=== PATIENT | female | born 1950 | race Caucasian/White ===

== ENCOUNTER 2016-03-10 16:35 | Emergency (ER) ==
--- NOTE | 2016-03-10 18:01 | PROVIDER DOCUMENTATION ---
HPI-General Adult - General Chief Complaint: Constipation Stated Complaint: BOWEL IMPACTION Time Seen by Provider: 03/10/16 17:46 Source: patient Allergies/Adverse Reactions: Patient Allergies Allergy/AdvReac Type Severity Reaction Status Date / Time No Known Allergies Allergy Verified 03/10/16 17:07 Home Medications: Cyclobenzaprine HCl [Flexeril] 20 mg PO HS 01/01/13 Duloxetine [Cymbalta] 20 mg PO DAILY 01/01/13 Ibandronate [Boniva] 150 mg PO Q30D 01/01/13 Ciprofloxacin HCl [Cipro] 500 mg PO BID MDD 10 03/10/16 Docusate Sodium [Colace] 100 mg PO DAILY 03/10/16 Estradiol 0.5 mg PO DAILY 03/10/16 Linaclotide [Linzess] 290 mcg PO DAILY 03/10/16 - History of Present Illness -Gen Adult Nature of Presenting Problems: 65 yo female presents to the emergency room with a chief complaint of constipation X 2 days. Reports has tried several OTC enemas w/o relief. Patient reports she can not remember her last BM. Gives Hx of constipation. Patient reports she is currently taking Cipro for a UTI. Denies fever, chills, N/V/D, abdominal pain, dysuria or urinary frequency. Severity: reports: moderate Onset/Duration: reports: 2 days ago Similar Symptoms Previously?: Yes Recently seen or treated by another doctor?: Yes Review of Systems - Adult - REVIEW OF SYSTEMS - ADULT ROS:: unobtainable per condition Constitutional: denies: chills, fever Gastrointestinal: reports: constipation. denies: abdominal pain, nausea, vomiting Past History - Adult - PAST MEDICAL HISTORY-ADULT Review of Records: reports: Nursing Assessment Review, Medications Reviewed - IMMUNIZATION STATUS Childhood Immunizations: See Nurse Assessment Flu Vaccine: See Nurse Assessment - SOCIAL HISTORY Smoking: denies Physical Exam-General - PHYSICAL EXAM-ADULT Initial Vital Signs Reviewed: Yes - CONSTITUTIONAL General Appearance: appears well, alert, no apparent distress - EYES Eyes: PERRL/EOMI, pink conjunctivae - HEAD, EARS, NOSE, MOUTH & THROAT HENMT: normocephalic/atraumatic, moist mucous membranes, normal ENT inspection - NECK Neck: full range of motion, supple - RESPIRATORY Respiratory: lungs clear, normal breath sounds - CARDIOVASCULAR Cardiovascular: normal peripheral pulses, regular rate, rhythm - GASTROINTESTINAL (ABDOMEN) Abdominal Exam: non tender, soft - SKIN Integumentary: normal color, normal turgor, warm/dry Progress - PLAN OF CARE/RESULTS Progress/Plan/Lab Results: Discussed care, diagnosis and need for follow-up, patient verbalized understanding Orders Category Date Time Status KUB ABDOMEN [RAD] Stat Exams 03/10/16 17:56 Taken Last Vital Signs Temp 97.6 F 03/10/16 17:09 Pulse 88 03/10/16 17:09 Resp 18 03/10/16 17:09 BP 130/76 03/10/16 17:09 Pulse Ox 99 03/10/16 17:09 Allergies No Known Allergies Allergy (Verified 03/10/16 17:07) Orders 03/10/16 17:56 KUB ABDOMEN [RAD] Stat Vital Signs - 24 hr 03/10/16 17:09 Temperature 97.6 F Pulse Rate 88 Respiratory 18 Rate Blood Pressure 130/76 O2 Sat by Pulse 99 Oximetry - XRAY 1 XRAY Study: Abdomen Impression: Abnormal XRAY Interpretation: large amount of stool Departure - Departure Time of Disposition Order: 17:56 DIAGNOSIS: Constipation Qualifiers: Constipation type: unspecified constipation type Qualified Code(s): K59.00 - Constipation, unspecified Disposition: HOME 01 Certified Medical Emergency: Urgent Condition: Good Prescriptions: Mineral Oil [Fleet Mineral Oil Enema] 1 each NM ONCE #1 enema Peg 3350/Na Sulf,Bicarb,Cl/KCl [Golytely Solution] 4,000 ml PO ONCE #1 [email or web address] Referrals: Cornelia Benavides MD [Primary Care Provider] - Instructions: Mineral Oil rectal enema, Constipation, Adult Attestation - Physician/ Mid-level Attestation Patient care was provided by Mid-level provider (MANAGER OF SECURITY/PA):: Yes Mid-level provider:: Vannessa Kumari Mid-level documentation review:: The Mid-level provider documentation, treatment plan and medical decision making was reviewed by the physician who agrees with all treatment and medical decision making by the MLP.
[2016-03-10 19:17] VITALS: BP 111/78
--- NOTE | 2016-03-11 08:47 | Diag Imaging Result Document ---
PROCEDURE NAME: MERI ABDOMEN - 03/10/2016 KUB: INDICATION: Constipation. FINDINGS: There is moderate retained fecal material. There are surgical clips within the pelvis. No bowel distention, organomegaly, or abnormal calcifications are appreciated. IMPRESSION: Moderate constipation.
== END 2016-03-10 19:16 | disposition home or self-care (01) ==
LOC: P.ED 16:35
DX: K59.00 Constipation, unspecified (principal); Z79.899 Other long term (current) drug therapy
CPT/HCPCS: 74000; 99283